=== PATIENT | male | born 1950 | race Caucasian/White ===

== ENCOUNTER 2020-09-15 09:24 | Outpatient (CLI) | payer MEDICARE, OTHER, SELFPAY ==
--- NOTE | 2020-09-15 09:46 | XR_ITS ---
WS: [id number] Exam: XR shoulder LT min 2V* [id number] Date/Time of Exam: 09/15/2020 9:50 AM No acute fracture or dislocation. 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 Mild DJD of the AC joint. Normal soft tissues. XR/XR shoulder LT min 2V* [id number] IMPRESSION: 1. Advanced degenerative changes of the glenohumeral joint with [id number] ar ticulation. 2. No fracture.
== END 2020-09-15 09:25 | disposition home or self-care (01) ==
LOC: RAD 09:42
PROVIDERS: Visit Provider Nurse Practitioner Family
DX: M25.512 Pain in left shoulder (principal)
CPT/HCPCS: 73030

== ENCOUNTER 2022-01-25 08:51 | Outpatient (CLI) | payer MEDICARE, OTHER, SELFPAY ==
--- NOTE | 2022-01-25 07:15 | USCV_ITS ---
Barrington Yun Age: 71 Gender: M : 1950 Exam Date: 01/25/2022 09:19 Ordering Phys: Jocelin Rivera NP Technologist: Petros Shaw [place] [facility] [place]: visual disturbance BP: 140 / 80 HR: 85 Rhythm: Sinus Technical Quality: Adequate MEASUREMENTS (Male / Female) Normal Values 2D ECHO LV Diastolic Diameter PLAX 4.2 cm 4.2 - 5.9 / 3.9 - 5.3 cm LV Systolic Diameter PLAX 2.5 cm IVS Diastolic Thickness 1.3 cm 0.6 - 1.0 / 0.6 - 0.9 cm IVS Systolic Thickness 1.6 cm LVPW Diastolic Thickness 1.2 cm 0.6 - 1.0 / 0.6 - 0.9 cm LVPW Systolic Thickness 2.1 cm LVOT Diameter 2.6 cm LV Ejection Fraction 2D Teich 41.3 % LV Ejection Fraction MOD 2C 58.3 % LV Ejection Fraction 2C AL 59.4 % LA Diameter 3.7 cm Aorta at Sinotubular Diameter 3.8 cm IVC Diameter 1.8 cm M-MODE Aortic Annulus Diameter 4.0 cm LA Ao Ratio MM 1.0 MV E Point Septal Separation 1.7 cm DOPPLER AV Peak Velocity 116.7 cm/s LVOT Peak Velocity 94.0 cm/s AV Area Cont Eq vti 4.9 cm squared AV Area Cont Eq pk 4.3 cm squared MV Area PHT 3.9 cm squared Mitral E to A Ratio 0.9 MV E' Velocity 48.0 cm/s Mitral E to MV E' Ratio 10.9 Mitral E to LV E' Lateral Ratio 9.0 Mitral E to LV E' Septal Ratio 13.9 TR Peak Velocity 190.7 cm/s TR Peak Gradient 14.5 mmHg TV Peak E Velocity 83.0 cm/s Right Atrial Pressure 3.0 mmHg Pulmonary Artery Systolic Pressu 17.5 mmHg RV Acceleration Time 0.1 s FINDINGS Left Ventricle LV is normal in size. LV systolic function is normal with EF of 55-60%. No regional wall motion abnormalities are seen. Grade 1 diastolic dysfunction Right Ventricle Normal in size and function Right Atrium Normal in size Left Atrium Left atrial dilation. Mitral Valve Structurally normal mitral valve. Mild mitral regurgitation Aortic Valve Aortic valve is thickened. No significant stenosis or regurgitation. Tricuspid Valve Trace tricuspid regurgitation. Insufficient TR jet to calculate RVSP Pulmonic Valve Not well-visualized Pericardium Normal Aorta Ascending aorta is mildly dilated IVC CONCLUSIONS LV systolic function is normal with EF of 55 to 60% Grade 1 diastolic dysfunction Left atrial dilation Mild mitral regurgitation Aortic valve is thickened. Trace tricuspid regurgitation Ascending aorta is mildly dilated No comparison studies are available Tiburcio Fernandes MD (Electronically Signed) Final Date: 10 February 2022 11:10 S
--- NOTE | 2022-01-25 08:00 | USCV_ITS ---
Barrington Yun Age: 71 Gender: M : 1950 Exam Date: 01/25/2022 09:34 Ordering Phys: Jocelin Rivera NP Technologist: Petros Shaw Exam Location: [facility] [place] Indication: visual disturbance Risk Factors: Previous Vascular Surgery: Right Brachial BP: / Left Brachial BP: / Right Left Velocity (cm/s) Spectral Plaque Velocity (cm/s) Spectral Plaque Syst/Diast Broadening Syst/Diast Broadening 87.10/ 15.40 Prox CCA 90.40 / 19.80 76.10/ 11.00 Mid CCA 80.50 / 15.40 79.40/ 16.50 Distal CCA 92.60 / 17.05 94.80/ 17.60 Prox ICA 88.20 / 26.45 86.00/ 14.30 Mid ICA 85.45 / 19.85 84.35/ 14.85 Distal ICA 88.57 / 24.63 88.20 ECA 134.50 1.09 ICA/CCA 1.02 Antegrade Vertebral Antegrade 57.30/ 11.00 cm/s 48.70/ 12.00 cm/s Tri Subclavian Tri 126.0 136.7 0 0 FINDINGS Comparison: none available. No significant elevation of systolic or diastolic velocities. Waveforms are normal. Mild, bilateral scattered calcified plaque and intimal thickening throughout the common carotid arteries and extending through the bifurcation. Antegrade vertebral arteries. CONCLUSIONS Bilateral ICA stenosis less than 50%. Dr. Teena Ashley DO (Electronically Signed) Final Date: 25 January 2022 11:26 S
== END 2022-01-25 08:52 | disposition home or self-care (01) ==
LOC: RAD 08:52
PROVIDERS: PCP Nurse Practitioner Family; Visit Provider Nurse Practitioner Family
DX: I10 Essential (primary) hypertension; H53.419 Scotoma involving central area, unspecified eye; I08.1 Rheumatic disorders of both mitral and tricuspid valves; I77.819 Aortic ectasia, unspecified site; I65.23 Occlusion and stenosis of bilateral carotid arteries
CPT/HCPCS: 93306; 93880

== ENCOUNTER 2022-01-30 06:50 | Outpatient (CLI) | payer MEDICARE, OTHER, SELFPAY ==
--- NOTE | 2022-01-30 06:58 | CT_ITS ---
WS: [id number] CT ANGIOGRAM CEREBRAL AND CAROTID ARTERIES Noncontrast CT head HISTORY: BLURRED VISION, RETINAL ARTERY OCCLUSION TECHNIQUE: Noncontrast CT head first performed. CT angiogram is performed of the carotid and cerebral arteries. During arterial injection imaging is obtained from the skull vertex to the aortic arch in 1.0 mm imaging. Coronal and sagittal reformats are submitted. Additional multi planar reformats of th e carotid and cerebral arteries are submitted, MIP imaging also reviewed. NASCET criteria utilized. All CT scans at [facility] use at least one of these dose optimization techniques: automated e xposure control; mA and/or kV adjustment per patient size (includes targeted exams where dose is matc hed to clinical indication); or iterative reconstruction. CONTRAST: Omnipaque 350; 95 mL IV. DLP: 600.70 mGy.cm COMPARISON: None available. Noncontrast CT head: No midline shift or mass effect. No hemorrhage. Mild small vessel ischemic disea se. No prior large territory infarct. Ventricles are normal size. Carotid Angiogram: Right carotid: Common carotid artery: Arises normally from the innominate artery. No significant plaque or stenosis. Internal carotid artery: Small amount of calcified plaque at the bifurcation. Internal carotid artery is patent. External carotid artery: Patent. Left carotid: Common carotid artery: Arises normally from the aorta. No significant plaque or stenosis. Internal carotid artery: Partially circumferential calcified plaque at the carotid bifurcation with i ntimal thickening. Small amount of plaque continues into the proximal ICA. No high-grade stenosis. External carotid artery: Patent. Right vertebral artery: Unremarkable. Left vertebral artery: Minimally dominant. No stenosis or occlusion. Subclavian arteries: No stenosis or significant abnormality. Upper thorax: Normal. Thyroid gland: Normal. Osseous structures: Cyst associated with the LEFT glenohumeral joint. CEREBRAL ANGIOGRAM: Intracranial vertebral arteries: Normal with no significant atherosclerosis. Basilar artery: No significant stenosis or occlusion. No aneurysm. Intracranial Internal carotid arteries: Mild scattered plaque through the cavernous and supraclinoid carotid arteries. No stenosis. Middle cerebral arteries: Normal. Anterior cerebral arteries and ACOM: Normal. Posterior cerebral arteries and PCOM's: Normal posterior cerebral arteries. Posterior communicating a rteries are small caliber but patent. Dural venous sinuses are normally enhancing. Mastoid air cells: Normal. Paranasal sinuses: Normal. Calvarium: Normal. Right eye prosthesis. CT/CT angio headneck* [id number] IMPRESSION: 1. No significant cervical carotid artery stenosis. Small amount of calcified plaque and intimal thickening in the bifurcations. 2. Mild atherosclerosis intracranial carotid arteries with no high-grade steno sis. 3. No aneurysms.
[2022-01-30] MEDS: iohexol 350 mg/mL 100 mL Btl IV (07:18)
== END 2022-01-30 06:51 | disposition home or self-care (01) ==
LOC: RAD 06:51
PROVIDERS: PCP Nurse Practitioner Family; Visit Provider Nurse Practitioner Family
DX: H53.8 Other visual disturbances (principal); H34.9 Unspecified retinal vascular occlusion; I65.23 Occlusion and stenosis of bilateral carotid arteries
CPT/HCPCS: 70496; 70498

== ENCOUNTER 2023-02-11 14:25 | Outpatient (CLI) | payer MEDICARE, OTHER, SELFPAY ==
--- NOTE | 2023-02-11 14:30 | USCV_ITS ---
Barrington Yun Age: 72 Gender: M : 1950 Exam Date: 02/11/2023 14:53 Ordering Phys: Jocelin Rivera NP Technologist: Neela Titus Exam Location: [facility] – [place] Indication: HTN, diastolic dysfunction BP: 124 / 74 HR: 59 Rhythm: Sinus Technical Quality: Good MEASUREMENTS (Male / Female) Normal Values 2D ECHO LV Diastolic Diameter PLAX 5.1 cm 4.2 - 5.9 / 3.9 - 5.3 cm LV Systolic Diameter PLAX 3.0 cm IVS Diastolic Thickness 1.3 cm 0.6 - 1.0 / 0.6 - 0.9 cm IVS Systolic Thickness 1.5 cm LVPW Diastolic Thickness 1.2 cm 0.6 - 1.0 / 0.6 - 0.9 cm LVPW Systolic Thickness 2.0 cm LVOT Diameter 2.2 cm LV Ejection Fraction 2D Teich 71.8 % LV Ejection Fraction MOD 2C 49.7 % LV Ejection Fraction 2C AL 53.9 % LA Diameter 4.1 cm LA Width 4.2 cm LA Height 5.6 cm RA Width 3.8 cm RA Height 4.2 cm Aorta at Sinotubular Diameter 3.2 cm IVC Diameter 1.5 cm M-MODE Aortic Annulus Diameter 3.4 cm LA Ao Ratio MM 1.2 MV E Point Septal Separation 0.7 cm DOPPLER AV Peak Velocity 131.0 cm/s LVOT Peak Velocity 128.0 cm/s AV Area Cont Eq vti 4.1 cm squared AV Area Cont Eq pk 3.7 cm squared MV Peak Velocity 107.0 cm/s MV Area PHT 3.3 cm squared Mitral E to A Ratio 1.0 MV E' Velocity 47.5 cm/s Mitral E to MV E' Ratio 12.8 Mitral E to LV E' Lateral Ratio 9.7 Mitral E to LV E' Septal Ratio 19.0 TR Peak Velocity 196.0 cm/s TR Peak Gradient 15.4 mmHg Right Atrial Pressure 5.0 mmHg Pulmonary Artery Systolic Pressu 20.4 mmHg PV Peak Velocity 83.0 cm/s RV Acceleration Time 0.1 s RV Ejection Time 0.3 s RV AcT/ET 0.5 FINDINGS Left Ventricle Normal left ventricular size and systolic function, EF 57 %. No regional wall motion abnormalities. Right Ventricle The right ventricle is normal in size and function. Right Atrium The right atrium is normal in size. Left Atrium The left atrium is normal in size. Mitral Valve Mild mitral valve regurgitation. Aortic Valve No gross abnormalities noted Tricuspid Valve Trace to mild tricuspid valve regurgitation. Pulmonic Valve Pulmonic valve not well visualized. Pericardium Normal pericardium without effusion. Aorta Normal ascending aorta dimension. IVC The inferior vena cava appears normal. CONCLUSIONS Normal left ventricular size and systolic function, EF 57 %. No regional wall motion abnormalities. Mild mitral valve regurgitation. Trace to mild tricuspid valve regurgitation. Estimated pulmonary artery peak systolic pressure 20 mmHg There is no pericardial effusion. There are no intracardiac masses. Compared to the previous study from 01/25/2022, there may not be a significant change Dr Rogers Jimenez MD FAC (Electronically Signed) Final Date: 11 February 2023 19:36 S
== END 2023-02-11 14:26 | disposition home or self-care (01) ==
PROVIDERS: PCP Nurse Practitioner Family; Visit Provider Nurse Practitioner Family
DX: I10 Essential (primary) hypertension (principal); I51.89 Other ill-defined heart diseases; I34.0 Nonrheumatic mitral (valve) insufficiency
CPT/HCPCS: 93306

== ENCOUNTER 2024-04-21 20:00 | Outpatient (CLI) | payer MEDICARE, SELFPAY | END 2024-04-21 20:01 | disposition home or self-care (01) | LOC: SLEEP 23:22 | PROVIDERS: PCP Nurse Practitioner Family; Visit Provider Nurse Practitioner Family | DX: G47.34 Idiopathic sleep related nonobstructive alveolar hypoventilation (principal); I10 Essential (primary) hypertension | CPT/HCPCS: 95810 ==

== ENCOUNTER → 2024-05-26 14:03 | Outpatient (BNVA) | payer MEDICARE, SELFPAY | PROVIDERS: PCP Nurse Practitioner Family; Visit Provider Internal Medicine Cardiovascular Disease | DX: R07.9 Chest pain, unspecified (principal) | CPT/HCPCS: 93005; 99204 ==